=== PATIENT | female | born 1970 | race African-American/Black ===

== ENCOUNTER 2022-03-27 09:17 | Emergency (ER) | payer BC ==
[~2022-03-27] VITALS: Ht 162.6 cm; Wt 73.0 kg
[2022-03-27] MEDS ORDERED: CEPH500C2 MT (10:15)
[2022-03-27 10:28] VITALS: BP 142/86
[2022-03-28] MEDS ORDERED: HYDR28.485 RC (17:31)
[2022-03-28] MEDS ORDERED: DIPH25CA83 MT (17:31)
== END 2022-03-27 10:29 | disposition home or self-care (01) ==
LOC: ER 09:17
DX: S00.262A Insect bite (nonvenomous) of left eyelid and periocular area, initial encounter (principal); W57.XXXA Bitten or stung by nonvenomous insect and other nonvenomous arthropods, initial encounter; Y93.89 Activity, other specified; Y92.89 Other specified places as the place of occurrence of the external cause; Y99.8 Other external cause status; D64.9 Anemia, unspecified; Z98.890 Other specified postprocedural states; Z90.710 Acquired absence of both cervix and uterus; T78.49XA Other allergy, initial encounter; X58.XXXA Exposure to other specified factors, initial encounter
CPT/HCPCS: 99283

== ENCOUNTER 2022-03-28 12:33 | Emergency (ER) | payer BC ==
[~2022-03-28] VITALS: Ht 152.4 cm; Wt 73.0 kg
[~2022-03-28 12:33] MED LIST: CEPH500C2 MT
[2022-03-28] MEDS ORDERED: HYDR28.485 RC (17:31)
[2022-03-28] MEDS ORDERED: DIPH25CA83 MT (17:31)
[2022-03-28 21:24] VITALS: BP 112/66
== END 2022-03-28 21:24 | disposition home or self-care (01) ==
LOC: ER 12:33
DX: T63.481A Toxic effect of venom of other arthropod, accidental (unintentional), initial encounter (principal); R22.0 Localized swelling, mass and lump, head; M79.89 Other specified soft tissue disorders; R03.0 Elevated blood-pressure reading, without diagnosis of hypertension; E05.90 Thyrotoxicosis, unspecified without thyrotoxic crisis or storm; Y93.84 Activity, sleeping; Y92.013 Bedroom of single-family (private) house as the place of occurrence of the external cause
CPT/HCPCS: 99281

== ENCOUNTER 2024-09-17 13:47 | Emergency (ER) | payer BC, MEDICAID, OTHER ==
[~2024-09-17] VITALS: Ht 165.1 cm; Wt 82.0 kg
[~2024-09-17 13:47] MED LIST changes: +DIPH25CA83 MT; +HYDR28.485 RC
[2024-09-17 13:53] VITALS: O2SAT 98
[2024-09-17 17:09] LABS: CLARITY URINE CLEAR (CLEAR); COLOR URINE YELLOW (YELLOW); GLUCOSE URINE NEGATIVE (NEGATIVE); KETONES URINE NEGATIVE (NEGATIVE); LEUKOCYTE ESTERASE URINE 1+ (NEGATIVE); NITRITE URINE NEGATIVE (NEGATIVE); OCCULT BLOOD URINE NEGATIVE (NEGATIVE); PH URINE 5.5 (4.5-8.0); PROTEIN URINE NEGATIVE (NEGATIVE); SPECIFIC GRAVITY URINE 1.025 (1.005-1.030)
[2024-09-17] MEDS ORDERED: KETOROLAC 30MG/ML VIAL IV STA (17:24)
[2024-09-17 17:42] LABS: BACTERIA URINE 1+; RBC URINE 0-2 /hpf (0-2); SQUAMOUS EPITHELIAL CELL URINE 1+ /lpf (RARE/1+)
[2024-09-17 20:06] LABS: BASOPHILS % 0.4 % (0.0-2.0); EOSINOPHILS % 1.5 % (0.0-5.0); HEMATOCRIT. 37.7 % (36.0-48.0); HEMOGLOBIN. 12.7 g/dL (12.0-16.0); MEAN CORPUSCULAR HEMOGLOBIN 32.1 pg (28.0-32.0); MEAN CORPUSCULAR HGB CONC 33.6 g/dL (31.0-37.0); MEAN CORPUSCULAR VOLUME 95.4 fL (81.0-99.0); MEAN PLATELET VOLUME 8.4 fl (7.4-10.4); MONOCYTES % 5.6 % (2.0-8.0); NEUTROPHILS % 54.5 % (40.0-76.0); PLATELET 253 x1000/uL (130-400); RED BLOOD CELL COUNT 3.95 mill/uL (4.2-5.4); RED CELL DISTRIBUTION WIDTH 13.4 % (11.6-14.6); WHITE BLOOD COUNT 5.2 x1000/uL (4.5-11.0)
[2024-09-17 20:13] LABS: CHLORIDE 106 mEq/L (98-107); SODIUM 141 mEq/L (136-145)
[2024-09-17 20:15] LABS: CALCIUM 9.6 mg/dL (8.7-10.4); CARBON DIOXIDE 27 mEq/L (21-32)
[2024-09-17 20:17] LABS: PROTHROMBIN TIME 10.9 sec (9.6-11.0)
[2024-09-17 20:20] LABS: CREATININE 0.9 mg/dL (0.6-1.0); GLUCOSE 86 mg/dL (70-105); UREA NITROGEN BLOOD 13 mg/dL (9-23)
[2024-09-17 20:22] LABS: ALANINE AMINOTRANSFERASE 9 IU/L (10-49); ALBUMIN 4.4 g/dL (3.2-4.8); ASPARTATE AMINOTRANSFERASE 15 IU/L (<34); BILIRUBIN DIRECT 0.1 mg/dL (<=3.0); BILIRUBIN TOTAL 0.5 mg/dL (0.1-1.0); PROTEIN TOTAL 7.5 g/dL (6.0-8.3)
[2024-09-17] MEDS: SODIUM CHLORIDE 0.9% 1,000 ML IV ONE (20:35)
[2024-09-17] MEDS: KETOROLAC 30MG/ML VIAL IV SCH (20:35)
[2024-09-17] MEDS: ONDANSETRON HCL 4MG/2ML INJ IV SCH (20:35)
[2024-09-17] MEDS: ONDANSETRON HCL 4MG/2ML INJ IV STA (20:36)
[2024-09-17] MEDS ORDERED: ONDA4TAB50 MT (22:56)
[2024-09-17] MEDS ORDERED: HYDR-4001 MT (22:57)
[2024-09-17] MEDS ORDERED: CEFP200T13 MT (22:58)
[2024-09-17 23:42] VITALS: BP 122/79; PULSE 70; RESP 19; TEMP 36.72516; O2SAT 98
[2024-09-17] MEDS ORDERED: IOHEXOL-300 100 ML BOTTLE ONE (23:46)
== END 2024-09-17 23:43 | disposition home or self-care (01) ==
LOC: ER 13:47
DX: N12 Tubulo-interstitial nephritis, not specified as acute or chronic (principal); E03.9 Hypothyroidism, unspecified; Z98.84 Bariatric surgery status; Z90.710 Acquired absence of both cervix and uterus; Z98.890 Other specified postprocedural states
CPT/HCPCS: 80076; 80048; 81003; 83690; 85025; 85610; 36415; 74177; 96361; 96374; 96375; 99285; Q9967; J1885; J2405; J7030; Z7610